=== PATIENT | male | born 1965 | race Two or more races ===

== ENCOUNTER 2025-01-18 11:11 | Inpatient (IN) | payer MEDICAID, OTHER ==
[2025-01-18] VITALS (16 sets, daily range): BP systolic 112–118; BP diastolic 88–99; PULSE 78–100; RESP 15–51; TEMP 36.974–37.2; O2SAT 94–100
[~2025-01-18] VITALS: Ht 165.1 cm; Wt 59.9 kg
[2025-01-18 12:02] LABS: EOSINOPHILS % 0.2 % (0.0-5.0); HEMOGLOBIN. 11.1 g/dL (14.0-18.0); RED BLOOD CELL COUNT 5.30 mill/uL (4.7-6.1)
[2025-01-18 12:03] LABS: BASOPHILS % 0.5 % (0.0-2.0); HEMATOCRIT. 36.2 % (42.0-52.0); LYMPHOCYTES % 15.1 % (20.0-50.0); MONOCYTES % 7.5 % (2.0-8.0); NEUTROPHILS % 76.7 % (40.0-76.0); RED CELL DISTRIBUTION WIDTH 21.3 % (11.6-14.6)
[2025-01-18 12:10] LABS: PLATELET 231 x1000/uL (130-400)
[2025-01-18 12:11] LABS: ADD RBC MORPHOLOGY YES; MEAN PLATELET VOLUME 9.3 fl (7.4-10.4)
[2025-01-18 12:20] LABS: CREATININE 1.1 mg/dL (0.6-1.3); UREA NITROGEN BLOOD 12 mg/dL (9-23)
[2025-01-18 12:27] LABS: PLATELET ESTIMATE NORMAL
[2025-01-18 12:44] LABS: TROPONIN I HIGH SENSITIVITY 11191 ng/L (3.0-53)
[2025-01-18] MEDS: MORPHINE SULFATE 4 MG/ML INJ (FOR IV/IM USE) IV ONE (13:31)
[2025-01-18] MEDS: ENOXAPARIN 80MG/0.8ML SYR SUBCUT ONE (13:44)
[2025-01-18] MEDS ORDERED: ACETAMINOPHEN 325MG TABLET PO PRN (15:00)
[2025-01-18] MEDS ORDERED: GUAIFENESIN 200MG/10ML SUGAR FREE UDC PO PRN (15:00)
[2025-01-18] MEDS ORDERED: IPRATROPIUM/ALBUTEROL 0.5-3(2.5)MG/3ML NEB HHN PRN (15:00)
[2025-01-18] MEDS ORDERED: CLONIDINE 0.1MG TABLET PO PRN (15:00)
[2025-01-18] MEDS ORDERED: ONDANSETRON HCL 4MG/2ML INJ IV PRN (15:00)
[2025-01-18] MEDS ORDERED: DOCUSATE SODIUM 100MG CAPSULE PO PRN (15:00)
[2025-01-18] MEDS: ASPIRIN 81MG EC TABLET PO SCH (15:15)
[2025-01-18] MEDS: IPRATROPIUM/ALBUTEROL 0.5-3(2.5)MG/3ML NEB HHN SCH (15:23)
[2025-01-18 15:24] LABS: BG BASE EXCESS -2.9 mmol/L (-2.0-3.0); BG CARBOXYHEMOGLOBIN 1.2 % (0.5-1.5); BG DEOXYHEMOGLOBIN 2.9 % (0.0-5.0); BG FLOW(L/min) 2.50 L/min; BG FRACTION INSPIRED OXYGEN 30; BG HCO3 ACT 21.0 mmol/L (21.0-28.0); BG METHEMOGLOBIN 0.3 % (0.5-1.5); BG OXYGEN SATURATION 97.1 % (94.0-98.0); BG OXYHEMOGLOBIN 95.6 % (94.0-98.0); BG PCO2 33.7 mmHg (35.0-48.0); BG PH 7.412 (7.350-7.450); BG PO2 96.5 mmHg (83.0-108.0); BG SAMPLE SITE LEFT RADIAL; BG TOTAL HEMOGLOBIN 12.5 g/dL (13.5-17.5); BG VENT MODE NASAL CANNULA
[2025-01-18 15:58] LABS: TROPONIN I HIGH SENSITIVITY 12821 ng/L (3.0-53)
[2025-01-18 16:15] LABS: TRIGLYCERIDE 71 mg/dL (0-150)
[2025-01-18 16:16] LABS: LDL CHOLESTEROL 54 mg/dL (5-100)
[2025-01-18 16:17] LABS: ASPARTATE AMINOTRANSFERASE 35 IU/L (<34); BILIRUBIN DIRECT 0.7 mg/dL (<=3.0); BILIRUBIN TOTAL 4.6 mg/dL (0.1-1.0); PHOSPHORUS 3.5 mg/dL (2.5-4.9); PROTEIN TOTAL 6.5 g/dL (6.0-8.3)
[2025-01-18] MEDS: NITROGLYCERIN 0.4MG TABLET SL SL PRN (16:19)
[2025-01-18] MEDS: FUROSEMIDE 40MG/4ML VIAL IVP SCH (16:29)
[2025-01-18] MEDS: PANTOPRAZOLE SODIUM 40 MG/VIAL IV SCH (16:29)
[2025-01-18 16:51] LABS: CLARITY URINE CLEAR (CLEAR); COLOR URINE DARK YELLOW (YELLOW); GLUCOSE URINE NEGATIVE (NEGATIVE); INR 1.5; KETONES URINE NEGATIVE (NEGATIVE); LEUKOCYTE ESTERASE URINE TRACE (NEGATIVE); NITRITE URINE NEGATIVE (NEGATIVE); OCCULT BLOOD URINE NEGATIVE (NEGATIVE); PH URINE 5.0 (4.5-8.0); PROTEIN URINE 1+ (NEGATIVE); SPECIFIC GRAVITY URINE 1.019 (1.005-1.030); UROBILINOGEN URINE 1.0 E.U./dL (0.2-1.0)
[2025-01-18 17:02] LABS: *AMPHETAMINES SCREEN URINE PRESUMPTIVE POSITIVE (NEGATIVE); *BARBITURATES SCREEN URINE NEGATIVE (NEGATIVE); *BENZODIAZEPINES SCREEN URINE NEGATIVE (NEGATIVE); *COCAINE SCREEN URINE NEGATIVE (NEGATIVE); CANNABINOID URINE SCREEN NEGATIVE (NEGATIVE); ECSTASY MDMA SCREEN URINE CONF.TEST INDICATED (NEGATIVE); METHADONE URINE SCREEN NEGATIVE (NEGATIVE); OPIATES URINE SCREEN PRESUMPTIVE POSITIVE (NEGATIVE); PHENCYCLIDINE URINE SCREEN NEGATIVE (NEGATIVE)
[2025-01-18 17:14] LABS: BACTERIA URINE TRACE; RBC URINE 0-2 /hpf (0-2); SQUAMOUS EPITHELIAL CELL URINE FEW /lpf (RARE/1+)
[2025-01-18] MEDS ORDERED: FUROSEMIDE 40MG/4ML VIAL IVP SCH (17:15)
[2025-01-18] MEDS: PIPERACILLIN/TAZO 3.375G/50ML 50 ML IV SCH (17:51)
[2025-01-18] MEDS ORDERED: DEXTROSE 50% WATER 50ML SYRINGE IV PRN (18:45)
[2025-01-18] MEDS: MAGNESIUM 2 G PREMIX 50 ML IV SCH (19:02)
[2025-01-18] MEDS: INSULIN LISPRO 100 UNITS/ML SUBCUT SCH (21:00)
[2025-01-18] MEDS: BLOOD SUGAR DIAGNOSTIC STRIP TEST SCH (21:44)
[2025-01-18] MEDS: ATORVASTATIN CALCIUM 40MG TABLET PO SCH (21:46)
[2025-01-19] VITALS (93 sets, daily range): BP systolic 101–138; BP diastolic 70–112; PULSE 69–109; RESP 0–51; TEMP 36.9–37.1; O2SAT 84–100
[2025-01-19] MEDS: PIPERACILLIN/TAZO 3.375G/50ML 50 ML IV SCH (02:01)
[2025-01-19 07:27] LABS: CREATININE 0.9 mg/dL (0.6-1.3); UREA NITROGEN BLOOD 9 mg/dL (9-23)
[2025-01-19 07:29] LABS: ASPARTATE AMINOTRANSFERASE 101 IU/L (<34); BILIRUBIN DIRECT 0.7 mg/dL (<=3.0); BILIRUBIN TOTAL 5.9 mg/dL (0.1-1.0); PROTEIN TOTAL 6.1 g/dL (6.0-8.3)
[2025-01-19 07:31] LABS: T4 FREE 1.57 ng/dL (0.89-1.76)
[2025-01-19 07:37] LABS: BASOPHILS % 0.6 % (0.0-2.0); EOSINOPHILS % 0.6 % (0.0-5.0); HEMATOCRIT. 36.3 % (42.0-52.0); HEMOGLOBIN. 11.1 g/dL (14.0-18.0); LYMPHOCYTES % 13.0 % (20.0-50.0); MONOCYTES % 7.6 % (2.0-8.0); NEUTROPHILS % 78.2 % (40.0-76.0); RED BLOOD CELL COUNT 5.35 mill/uL (4.7-6.1); RED CELL DISTRIBUTION WIDTH 20.7 % (11.6-14.6)
[2025-01-19 08:26] LABS: TROPONIN I HIGH SENSITIVITY 78486 ng/L (3.0-53)
[2025-01-19] MEDS ORDERED: ENOXAPARIN 80MG/0.8ML SYR SUBCUT SCH (09:00)
[2025-01-19] MEDS: FERROUS SULFATE 325MG TABLET PO SCH (09:30)
[2025-01-19] MEDS ORDERED: VERAPAMIL HCL 2.5 MG/1 ML 2ML VIAL IV ONE ×2 (11:13→13:26)
[2025-01-19] MEDS ORDERED: LIDOCAINE HCL 1% 20ML VIAL ONE ×2 (11:13→13:26)
[2025-01-19] MEDS ORDERED: HEPARIN 1000 UNITS/ML 10ML ONE ×3 (11:13→14:52)
[2025-01-19] MEDS ORDERED: IODIXANOL 320MG/ML 100 ML BOTTLE IV ONE ×4 (11:13→14:51)
[2025-01-19] MEDS ORDERED: FENTANYL CITRATE/PF 50MCG/ML 2ML VIAL ONE ×2 (11:32→14:02)
[2025-01-19] MEDS ORDERED: MIDAZOLAM HCL 2 MG/2 ML VIAL ONE ×2 (11:32→14:03)
[2025-01-19] MEDS ORDERED: AMIODARONE HCL 50MG/ML 3ML VIAL IV ONE (13:57)
[2025-01-19] MEDS ORDERED: NICARDIPINE 100MCG/ML 10ML VIAL (CATH LAB) IV ONE (14:18)
[2025-01-19] MEDS ORDERED: NITROGLYCERIN 50MCG/ML 10ML VIAL (CATH LAB) IV ONE (14:18)
[2025-01-19] MEDS ORDERED: FUROSEMIDE 100MG/10ML VIAL ONE (14:23)
[2025-01-19] MEDS ORDERED: ASPIRIN 81MG TABLET ONE (15:03)
[2025-01-19] MEDS ORDERED: CLOPIDOGREL 75MG TABLET ONE (15:03)
[2025-01-19] MEDS ORDERED: ATROPINE SULFATE 1MG/10ML SYR IV PRN (15:15)
[2025-01-19] MEDS: ACETAMINOPHEN 325MG TABLET PO PRN (18:26)
[2025-01-20] VITALS (52 sets, daily range): BP systolic 99–134; BP diastolic 74–108; PULSE 83–139; RESP 15–55; TEMP 36.7–37.6; O2SAT 83–100
[2025-01-20 05:32] LABS: HEMATOCRIT. 35.6 % (42.0-52.0); HEMOGLOBIN. 11.0 g/dL (14.0-18.0); MEAN PLATELET VOLUME 9.2 fl (7.4-10.4); PLATELET 198 x1000/uL (130-400); RED BLOOD CELL COUNT 5.24 mill/uL (4.7-6.1); RED CELL DISTRIBUTION WIDTH 21.2 % (11.6-14.6)
[2025-01-20 05:46] LABS: CREATININE 1.0 mg/dL (0.6-1.3)
[2025-01-20 05:47] LABS: UREA NITROGEN BLOOD 11 mg/dL (9-23)
[2025-01-20 05:48] LABS: PHOSPHORUS 2.4 mg/dL (2.5-4.9)
[2025-01-20] MEDS: CLOPIDOGREL 75MG TABLET PO SCH (08:19)
[2025-01-20 10:16] LABS: BAND% 1.0 % (1.0-6.0); LYMPHOCYTES % MANUAL 11.0 % (20.0-50.0); MONOCYTES % MANUAL 6.0 % (2.0-8.0); NEUTROPHILS % MANUAL 82.0 % (45.0-75.0)
[2025-01-20 10:17] LABS: PLATELET ESTIMATE NORMAL
[2025-01-20] MEDS ORDERED: LIP40 PO (11:20)
[2025-01-20] MEDS ORDERED: FERR-63 PO (11:20)
[2025-01-20] MEDS ORDERED: PROT40 PO (11:20)
[2025-01-20] MEDS ORDERED: CLOP-31 PO (11:20)
[2025-01-20] MEDS ORDERED: ASPI-1406 PO (11:20)
[2025-01-20] MEDS: MAGNESIUM 2 G PREMIX 50 ML IV ONE (11:46)
[2025-01-20] MEDS: POTASSIUM CHLORIDE 20MEQ TABLET SR PO SCH (11:46)
[2025-01-20] MEDS ORDERED: IOHEXOL-350 100 ML BOTTLE ONE (12:00)
[2025-01-20] MEDS: FUROSEMIDE 40MG/4ML VIAL IVP SCH (12:49)
[2025-01-20] MEDS: SODIUM PHOSPHATE 15 MMOL in DEXT 5% WATER 245 ML IV ONE (12:50)
[2025-01-20] MEDS: METOPROLOL TARTRATE 25MG TABLET PO SCH (21:00)
[2025-01-21] VITALS (55 sets, daily range): BP systolic 77–134; BP diastolic 52–112; PULSE 87–135; RESP 9–48; TEMP 36.9–37.2; O2SAT 91–100
[2025-01-21 05:46] LABS: CREATININE 0.9 mg/dL (0.6-1.3); UREA NITROGEN BLOOD 9 mg/dL (9-23)
[2025-01-21 05:48] LABS: PHOSPHORUS 3.0 mg/dL (2.5-4.9)
[2025-01-21] MEDS: THIAMINE HCL 100MG TABLET PO SCH (08:51)
[2025-01-21] MEDS: POTASSIUM CHLORIDE 20MEQ TABLET SR PO NR (08:51)
[2025-01-21] MEDS: PIPERACILLIN/TAZO 3.375G/50ML 50 ML IV SCH (13:24)
[2025-01-21] MEDS: FUROSEMIDE 40MG/4ML VIAL IVP SCH (21:00)
[2025-01-22] VITALS (102 sets, daily range): BP systolic 77–127; BP diastolic 59–99; PULSE 80–112; RESP 0–55; TEMP 36.6–37.9; O2SAT 86–100
[2025-01-22 05:56] LABS: BASOPHILS % 0.4 % (0.0-2.0); EOSINOPHILS % 1.0 % (0.0-5.0); HEMATOCRIT. 36.4 % (42.0-52.0); HEMOGLOBIN. 11.5 g/dL (14.0-18.0); LYMPHOCYTES % 10.0 % (20.0-50.0); MONOCYTES % 7.5 % (2.0-8.0); NEUTROPHILS % 81.1 % (40.0-76.0); RED BLOOD CELL COUNT 5.45 mill/uL (4.7-6.1); RED CELL DISTRIBUTION WIDTH 21.0 % (11.6-14.6)
[2025-01-22 06:23] LABS: CREATININE 1.0 mg/dL (0.6-1.3); UREA NITROGEN BLOOD 9 mg/dL (9-23)
[2025-01-22 06:25] LABS: PHOSPHORUS 2.8 mg/dL (2.5-4.9)
[2025-01-22 09:07] LABS: BG BASE EXCESS 3.2 mmol/L (-2.0-3.0); BG CARBOXYHEMOGLOBIN 1.6 % (0.5-1.5); BG DEOXYHEMOGLOBIN 7.8 % (0.0-5.0); BG FLOW(L/min) 2.00 L/min; BG FRACTION INSPIRED OXYGEN 28; BG HCO3 ACT 27.1 mmol/L (21.0-28.0); BG METHEMOGLOBIN 0.0 % (0.5-1.5); BG OXYGEN SATURATION 92.1 % (94.0-98.0); BG OXYHEMOGLOBIN 90.6 % (94.0-98.0); BG PCO2 38.9 mmHg (35.0-48.0); BG PH 7.461 (7.350-7.450); BG PO2 64.4 mmHg (83.0-108.0); BG SAMPLE SITE RIGHT BRACHIAL; BG TOTAL HEMOGLOBIN 13.2 g/dL (13.5-17.5); BG VENT MODE NASAL CANNULA
[2025-01-22 09:28] LABS: PLATELET 177 x1000/uL (130-400)
[2025-01-22] MEDS: MAGNESIUM 2 G PREMIX 50 ML IV SCH (09:42)
[2025-01-22] MEDS: ENOXAPARIN 40MG/0.4ML SYR SUBCUT SCH (09:44)
[2025-01-22] MEDS: SODIUM CHLORIDE 0.9% 250 ML IV ONE (13:06)
[2025-01-23] VITALS (73 sets, daily range): BP systolic 87–127; BP diastolic 70–103; PULSE 87–112; RESP 0–47; TEMP 36.6–37.1; O2SAT 90–100
[2025-01-23 05:47] LABS: BASOPHILS % 0.5 % (0.0-2.0); EOSINOPHILS % 1.4 % (0.0-5.0); HEMATOCRIT. 37.6 % (42.0-52.0); HEMOGLOBIN. 11.7 g/dL (14.0-18.0); LYMPHOCYTES % 11.4 % (20.0-50.0); MEAN PLATELET VOLUME 9.2 fl (7.4-10.4); MONOCYTES % 7.7 % (2.0-8.0); NEUTROPHILS % 79.0 % (40.0-76.0); PLATELET 212 x1000/uL (130-400); RED BLOOD CELL COUNT 5.49 mill/uL (4.7-6.1); RED CELL DISTRIBUTION WIDTH 21.3 % (11.6-14.6)
[2025-01-23 06:12] LABS: CREATININE 0.9 mg/dL (0.6-1.3); UREA NITROGEN BLOOD 8 mg/dL (9-23)
[2025-01-23 06:14] LABS: ASPARTATE AMINOTRANSFERASE 24 IU/L (<34); BILIRUBIN DIRECT 1.3 mg/dL (<=3.0); PHOSPHORUS 3.6 mg/dL (2.5-4.9)
[2025-01-23 06:15] LABS: BILIRUBIN TOTAL 3.1 mg/dL (0.1-1.0); PROTEIN TOTAL 6.5 g/dL (6.0-8.3)
[2025-01-23] MEDS ORDERED: LIDOCAINE HCL 1% 20ML VIAL ONE (08:07)
[2025-01-23 09:01] LABS: BG BASE EXCESS 3.3 mmol/L (-2.0-3.0); BG CARBOXYHEMOGLOBIN 1.4 % (0.5-1.5); BG DEOXYHEMOGLOBIN 6.7 % (0.0-5.0); BG FRACTION INSPIRED OXYGEN 21; BG HCO3 ACT 25.6 mmol/L (21.0-28.0); BG METHEMOGLOBIN 0.0 % (0.5-1.5); BG OXYGEN SATURATION 93.2 % (94.0-98.0); BG OXYHEMOGLOBIN 91.9 % (94.0-98.0); BG PCO2 32.1 mmHg (35.0-48.0); BG PH 7.520 (7.350-7.450); BG PO2 64.6 mmHg (83.0-108.0); BG SAMPLE SITE LEFT BRACHIAL; BG TOTAL HEMOGLOBIN 13.0 g/dL (13.5-17.5); BG VENT MODE ROOM AIR
[2025-01-23] MEDS ORDERED: MIDAZOLAM HCL 2 MG/2 ML VIAL ONE (12:19)
[2025-01-23] MEDS ORDERED: FENTANYL CITRATE/PF 50MCG/ML 2ML VIAL ONE (12:19)
[2025-01-23] MEDS ORDERED: IODIXANOL 320MG/ML 100 ML BOTTLE IV ONE (12:44)
[2025-01-23] MEDS: FUROSEMIDE 100MG/10ML VIAL IVP NR (13:53)
[2025-01-24] VITALS (73 sets, daily range): BP systolic 88–141; BP diastolic 60–111; PULSE 84–155; RESP 0–46; TEMP 36.6–37.2; O2SAT 83–99
[2025-01-24 06:56] LABS: CREATININE 1.1 mg/dL (0.6-1.3); UREA NITROGEN BLOOD 10 mg/dL (9-23)
[2025-01-24 06:58] LABS: PHOSPHORUS 3.7 mg/dL (2.5-4.9)
[2025-01-24 07:24] LABS: BASOPHILS % 0.8 % (0.0-2.0); EOSINOPHILS % 2.4 % (0.0-5.0); HEMATOCRIT. 40.5 % (42.0-52.0); HEMOGLOBIN. 12.6 g/dL (14.0-18.0); LYMPHOCYTES % 14.1 % (20.0-50.0); MEAN PLATELET VOLUME 9.4 fl (7.4-10.4); MONOCYTES % 9.2 % (2.0-8.0); NEUTROPHILS % 73.5 % (40.0-76.0); PLATELET 224 x1000/uL (130-400); RED BLOOD CELL COUNT 5.96 mill/uL (4.7-6.1); RED CELL DISTRIBUTION WIDTH 21.0 % (11.6-14.6)
[2025-01-24] MEDS: KCL 20MEQ/100ML PREMIX 100 ML IV ONE (10:06)
[2025-01-24] MEDS: METOPROLOL TARTRATE 5MG/5ML VIAL IV SCH (10:06)
[2025-01-24] MEDS: MAGNESIUM 1 G PREMIX 100 ML IV ONE (10:06)
[2025-01-24] MEDS: FUROSEMIDE 40MG/4ML VIAL IVP SCH (13:46)
[2025-01-24] MEDS: METOPROLOL TARTRATE 25MG TABLET PO SCH (21:20)
[2025-01-24] MEDS: SILDENAFIL CITRATE 20MG TABLET PO SCH (21:21)
[2025-01-25] VITALS (56 sets, daily range): BP systolic 69–113; BP diastolic 56–89; PULSE 76–103; RESP 9–35; TEMP 36.6–36.8; O2SAT 89–100
[2025-01-25 06:43] LABS: BASOPHILS % 0.7 % (0.0-2.0); EOSINOPHILS % 1.7 % (0.0-5.0); HEMATOCRIT. 42.2 % (42.0-52.0); HEMOGLOBIN. 13.2 g/dL (14.0-18.0); LYMPHOCYTES % 17.6 % (20.0-50.0); MONOCYTES % 8.6 % (2.0-8.0); NEUTROPHILS % 71.4 % (40.0-76.0); RED BLOOD CELL COUNT 6.29 mill/uL (4.7-6.1); RED CELL DISTRIBUTION WIDTH 21.4 % (11.6-14.6)
[2025-01-25 07:02] LABS: CREATININE 0.9 mg/dL (0.6-1.3); UREA NITROGEN BLOOD 12 mg/dL (9-23)
[2025-01-25 07:04] LABS: PHOSPHORUS 3.8 mg/dL (2.5-4.9)
[2025-01-25] MEDS: EMPAGLIFLOZIN 10MG TABLET PO SCH (08:15)
[2025-01-25] MEDS ORDERED: METO25TA6 PO (09:57)
[2025-01-25] MEDS ORDERED: EMPA10TA PO (09:57)
[2025-01-25] MEDS ORDERED: REV20 PO (09:57)
[2025-01-25] MEDS ORDERED: THIA100T72 PO (09:57)
[2025-01-25 12:17] LABS: PLATELET 227 x1000/uL (130-400)
[2025-01-25] MEDS ORDERED: FURO40TA5 MT (13:23)
== END 2025-01-25 19:00 | DRG 175 ==
LOC: ER 11:11 → CVICU 13:23 → EDBEDREQ 13:40 → EDBEDREQSVC 13:40 → EDBEDREQTM 13:40 → ENRESERV 19:52
PROVIDERS: ADMIT Internal Medicine; ATTEND Internal Medicine
PROC: 4A023N7 Measurement of Cardiac Sampling and Pressure, Left Heart, Percutaneous Approach (ICD-10-PCS; principal; 2025-01-20)
PROC: 027034Z Dilation of Coronary Artery, One Artery with Drug-eluting Intraluminal Device, Percutaneous Approach (ICD-10-PCS; 2025-01-20)
PROC: B2111ZZ Fluoroscopy of Multiple Coronary Arteries using Low Osmolar Contrast (ICD-10-PCS; 2025-01-20)
PROC: B2151ZZ Fluoroscopy of Left Heart using Low Osmolar Contrast (ICD-10-PCS; 2025-01-20)
PROC: 4A023N6 Measurement of Cardiac Sampling and Pressure, Right Heart, Percutaneous Approach (ICD-10-PCS; 2025-01-23)
PROC: B2141ZZ Fluoroscopy of Right Heart using Low Osmolar Contrast (ICD-10-PCS; 2025-01-23)
DX: I11.0 Hypertensive heart disease with heart failure (principal); J96.01 Acute respiratory failure with hypoxia; E87.20 Acidosis, unspecified; I27.20 Pulmonary hypertension, unspecified; I21.A1 Myocardial infarction type 2; J91.8 Pleural effusion in other conditions classified elsewhere; I50.23 Acute on chronic systolic (congestive) heart failure; J44.0 Chronic obstructive pulmonary disease with (acute) lower respiratory infection; D50.9 Iron deficiency anemia, unspecified; F15.10 Other stimulant abuse, uncomplicated; F16.10 Hallucinogen abuse, uncomplicated; I07.1 Rheumatic tricuspid insufficiency; I37.1 Nonrheumatic pulmonary valve insufficiency; E11.9 Type 2 diabetes mellitus without complications; E83.39 Other disorders of phosphorus metabolism; E83.42 Hypomagnesemia; I25.10 Atherosclerotic heart disease of native coronary artery without angina pectoris; E87.6 Hypokalemia; I44.4 Left anterior fascicular block; I42.9 Cardiomyopathy, unspecified; Z79.82 Long term (current) use of aspirin; I25.2 Old myocardial infarction; Z79.899 Other long term (current) drug therapy; Z86.73 Personal history of transient ischemic attack (TIA), and cerebral infarction without residual deficits; Z79.02 Long term (current) use of antithrombotics/antiplatelets
CPT/HCPCS: 36415; 36600; 71045; 71275; 76700; 80048; 80061; 80076; 80305; 81003; 82375; 82728; 82805; 82962; 83036; 83540; 83550; 83605; 83735; 83880; 83930; 84100; 84145; 84439; 84443; 84484; 85025; 85347; 85379; 86850; 86900; 92928; 93005; 93306; 93451; 93458; 93970; 94070; 94640; 94664; 97116; 97162; 97166; 97530; 97535; 98960; 99291; A4606; C1725; C1769; C1874; C1887; C1893; J0282; J1644; J1650; J1815; J1938; J2003; J2250; J2270; J2470; J2543; J3010; J3475; J3480; J3490; J7060; Q9967

== ENCOUNTER 2025-02-27 21:14 | Inpatient (IN) | payer OTHER ==
[~2025-02-27] VITALS: Ht 177.8 cm; Wt 76.7 kg
[~2025-02-27 21:14] MED LIST: ASPI-1406 PO; CLOP-31 PO; EMPA10TA PO; FERR-63 PO; FURO40TA5 MT; LIP40 PO; METO25TA6 PO; PROT40 PO; REV20 PO; THIA100T72 PO
[2025-02-27 21:29] VITALS: O2SAT 97
[2025-02-27] MEDS ORDERED: BENA20TA77 MT (21:35)
[2025-02-27] MEDS ORDERED: COR3 MT (21:35)
[2025-02-27] MEDS ORDERED: PROM6.2527 MT (21:35)
[2025-02-27] MEDS ORDERED: GABA100C MT (21:35)
[2025-02-27] MEDS ORDERED: APIX2.5T MT (21:35)
[2025-02-27] MEDS ORDERED: FAMO-135 MT (21:35)
[2025-02-27] MEDS ORDERED: ALBU2.5V13 NEB (21:35)
[2025-02-27] MEDS: MORPHINE SULFATE 4 MG/ML INJ (FOR IV/IM USE) IV ONE (23:11)
[2025-02-27] MEDS: ONDANSETRON HCL 4MG/2ML INJ IV ONE (23:11)
[2025-02-27 23:29] LABS: BASOPHILS % 0.9 % (0.0-2.0); EOSINOPHILS % 0.5 % (0.0-5.0); HEMATOCRIT. 37.1 % (42.0-52.0); HEMOGLOBIN. 11.4 g/dL (14.0-18.0); LYMPHOCYTES % 11.0 % (20.0-50.0); MEAN PLATELET VOLUME 10.2 fl (7.4-10.4); MONOCYTES % 4.8 % (2.0-8.0); NEUTROPHILS % 82.8 % (40.0-76.0); RED BLOOD CELL COUNT 5.23 mill/uL (4.7-6.1); RED CELL DISTRIBUTION WIDTH 22.8 % (11.6-14.6)
[2025-02-27 23:30] LABS: ADD RBC MORPHOLOGY YES
[2025-02-27 23:40] LABS: INR 1.2
[2025-02-27 23:44] LABS: CLARITY URINE CLEAR (CLEAR); COLOR URINE DARK YELLOW (YELLOW); GLUCOSE URINE NEGATIVE (NEGATIVE); KETONES URINE NEGATIVE (NEGATIVE); LEUKOCYTE ESTERASE URINE NEGATIVE (NEGATIVE); NITRITE URINE NEGATIVE (NEGATIVE); OCCULT BLOOD URINE TRACE (NEGATIVE); PH URINE 5.0 (4.5-8.0); PROTEIN URINE 3+ (NEGATIVE); SPECIFIC GRAVITY URINE 1.026 (1.005-1.030); UROBILINOGEN URINE 1.0 E.U./dL (0.2-1.0)
[2025-02-27 23:56] LABS: *AMPHETAMINES SCREEN URINE NEGATIVE (NEGATIVE); *BARBITURATES SCREEN URINE NEGATIVE (NEGATIVE); *BENZODIAZEPINES SCREEN URINE NEGATIVE (NEGATIVE); *COCAINE SCREEN URINE NEGATIVE (NEGATIVE); CANNABINOID URINE SCREEN NEGATIVE (NEGATIVE); ECSTASY MDMA SCREEN URINE NEGATIVE (NEGATIVE); METHADONE URINE SCREEN NEGATIVE (NEGATIVE); OPIATES URINE SCREEN NEGATIVE (NEGATIVE); PHENCYCLIDINE URINE SCREEN NEGATIVE (NEGATIVE)
[2025-02-28] MEDS: FUROSEMIDE 40MG/4ML VIAL IVP NR (00:10)
[2025-02-28 00:51] LABS: BACTERIA URINE TRACE; SQUAMOUS EPITHELIAL CELL URINE NONE SEEN /lpf (RARE/1+); WBC URINE NONE SEEN /hpf (0-2)
[2025-02-28 00:52] LABS: CALCIUM OXALATE CRYSTALS URINE 1+ /lpf; COARSE GRANULAR CASTS URINE 0-5 /lpf; FINE GRANULAR CASTS URINE 0-5 /lpf; HYALINE CASTS URINE 0-5 /lpf
[2025-02-28 01:01] LABS: CREATININE 0.9 mg/dL (0.6-1.3)
[2025-02-28 01:02] LABS: UREA NITROGEN BLOOD 9 mg/dL (9-23)
[2025-02-28 01:03] LABS: ASPARTATE AMINOTRANSFERASE 17 IU/L (<34)
[2025-02-28 01:04] LABS: BILIRUBIN DIRECT 1.0 mg/dL (<=3.0); BILIRUBIN TOTAL 4.0 mg/dL (0.1-1.0); PROTEIN TOTAL 7.1 g/dL (6.0-8.3)
[2025-02-28 01:07] LABS: TROPONIN I HIGH SENSITIVITY 354 ng/L (3.0-53)
[2025-02-28] MEDS: ASPIRIN 325MG EC TABLET PO NR (04:25)
[2025-02-28] MEDS: ENOXAPARIN 120MG/0.8ML SYR SUBCUT NR (04:25)
[2025-02-28 04:31] LABS: PLATELET ESTIMATE NORMAL
[2025-02-28 04:36] LABS: PLATELET 231 x1000/uL (130-400)
[2025-02-28 05:00] VITALS: BP 99/68; PULSE 107; RESP 32; TEMP 35.584
[2025-02-28] MEDS ORDERED: CLONIDINE 0.1MG TABLET PO PRN (06:15)
[2025-02-28] MEDS ORDERED: MORPHINE SULFATE 4 MG/ML INJ (FOR IV/IM USE) IV PRN (06:15)
[2025-02-28] MEDS ORDERED: ONDANSETRON HCL 4MG/2ML INJ IV PRN (06:15)
[2025-02-28] MEDS ORDERED: HYDROCODONE/ACETAMINOPHEN 5/325MG TABLET PO PRN (06:15)
[2025-02-28] MEDS ORDERED: ZOLPIDEM TARTRATE 5MG TABLET PO PRN (06:15)
[2025-02-28] MEDS ORDERED: MAGNESIUM/ALUMINUM HYDROXIDE/SIMETHICONE 30ML UDC PO PRN (06:15)
[2025-02-28] MEDS ORDERED: ACETAMINOPHEN 325MG TABLET PO PRN (06:15)
[2025-02-28 08:00] VITALS: BP 127/89; PULSE 96; RESP 18; TEMP 36.5; O2SAT 100
[2025-02-28] MEDS: FUROSEMIDE 40MG/4ML VIAL IVP SCH (09:28)
[2025-02-28] MEDS: PANTOPRAZOLE SODIUM 40 MG/VIAL IV SCH (09:28)
[2025-02-28 12:00] VITALS: BP 119/91; PULSE 102; RESP 20; TEMP 36.3; O2SAT 99
[2025-02-28 12:20] LABS: CLARITY URINE CLEAR (CLEAR); COLOR URINE YELLOW (YELLOW); SPECIFIC GRAVITY URINE 1.006 (1.005-1.030)
[2025-02-28 12:21] LABS: GLUCOSE URINE NEGATIVE (NEGATIVE); KETONES URINE NEGATIVE (NEGATIVE); LEUKOCYTE ESTERASE URINE TRACE (NEGATIVE); NITRITE URINE NEGATIVE (NEGATIVE); OCCULT BLOOD URINE NEGATIVE (NEGATIVE); PH URINE 5.0 (4.5-8.0); PROTEIN URINE NEGATIVE (NEGATIVE); UROBILINOGEN URINE 0.2 E.U./dL (0.2-1.0)
[2025-02-28 12:30] LABS: HYALINE CASTS URINE 0-5 /lpf
[2025-02-28 12:31] LABS: RBC URINE NONE SEEN /hpf (0-2); SQUAMOUS EPITHELIAL CELL URINE FEW /lpf (RARE/1+); WBC URINE 0-2 /hpf (0-2)
[2025-02-28 12:32] LABS: BACTERIA URINE NONE SEEN
[2025-02-28] MEDS: GABAPENTIN 100MG CAPSULE PO SCH (14:19)
[2025-02-28] MEDS: SILDENAFIL CITRATE 20MG TABLET PO SCH (14:19)
[2025-02-28 15:11] LABS: *AMPHETAMINES SCREEN URINE NEGATIVE (NEGATIVE); *BARBITURATES SCREEN URINE NEGATIVE (NEGATIVE); *BENZODIAZEPINES SCREEN URINE NEGATIVE (NEGATIVE); *COCAINE SCREEN URINE NEGATIVE (NEGATIVE); CANNABINOID URINE SCREEN NEGATIVE (NEGATIVE); ECSTASY MDMA SCREEN URINE NEGATIVE (NEGATIVE); METHADONE URINE SCREEN NEGATIVE (NEGATIVE); OPIATES URINE SCREEN NEGATIVE (NEGATIVE); PHENCYCLIDINE URINE SCREEN NEGATIVE (NEGATIVE)
[2025-02-28 16:00] VITALS: BP 127/97; PULSE 81; RESP 17; TEMP 36.4; O2SAT 100
[2025-02-28 19:13] LABS: TROPONIN I HIGH SENSITIVITY 316 ng/L (3.0-53)
[2025-02-28 20:00] VITALS: BP 100/73; PULSE 101; RESP 21; TEMP 35.7; O2SAT 96
[2025-02-28] MEDS: METOPROLOL TARTRATE 25MG TABLET PO SCH (21:00)
[2025-02-28] MEDS: CARVEDILOL 3.125 MG TABLET PO SCH (21:41)
[2025-02-28] MEDS: ATORVASTATIN CALCIUM 40MG TABLET PO SCH (21:41)
[2025-02-28] MEDS: APIXABAN 5 MG TABLET PO SCH (21:41)
[2025-03-01] VITALS: BP 120/84; PULSE 94; RESP 20; TEMP 36.4; O2SAT 98
[2025-03-01 01:06] LABS: TROPONIN I HIGH SENSITIVITY 309 ng/L (3.0-53)
[2025-03-01 04:00] VITALS: BP 96/71; PULSE 78; RESP 22; TEMP 36.3; O2SAT 97
[2025-03-01 06:45] LABS: BASOPHILS % 0.6 % (0.0-2.0); EOSINOPHILS % 2.4 % (0.0-5.0); HEMATOCRIT. 34.3 % (42.0-52.0); HEMOGLOBIN. 10.5 g/dL (14.0-18.0); LYMPHOCYTES % 14.2 % (20.0-50.0); MEAN PLATELET VOLUME 8.9 fl (7.4-10.4); MONOCYTES % 6.2 % (2.0-8.0); NEUTROPHILS % 76.6 % (40.0-76.0); PLATELET 253 x1000/uL (130-400); RED BLOOD CELL COUNT 4.87 mill/uL (4.7-6.1); RED CELL DISTRIBUTION WIDTH 22.5 % (11.6-14.6)
[2025-03-01 06:54] LABS: UREA NITROGEN BLOOD 9 mg/dL (9-23)
[2025-03-01 07:37] LABS: CREATININE 0.5 mg/dL (0.6-1.3)
[2025-03-01 08:00] VITALS: BP 100/68; PULSE 100; RESP 18; TEMP 36.5; O2SAT 95
[2025-03-01] MEDS: THIAMINE HCL 100MG TABLET PO SCH (08:41)
[2025-03-01] MEDS: CLOPIDOGREL 75MG TABLET PO SCH (08:41)
[2025-03-01] MEDS: ASPIRIN 81MG EC TABLET PO SCH (08:41)
[2025-03-01] MEDS: EMPAGLIFLOZIN 10MG TABLET PO SCH (08:42)
[2025-03-01] MEDS ORDERED: ENOXAPARIN 40MG/0.4ML SYR SUBCUT SCH (09:00)
[2025-03-01] MEDS ORDERED: NALOXONE HCL 0.4MG/ML VIAL IV PRN (11:30)
[2025-03-01 12:00] VITALS: BP 112/80; PULSE 81; RESP 18; TEMP 36.7; O2SAT 96
[2025-03-01 16:00] VITALS: BP 123/82; PULSE 98; RESP 18; TEMP 36.6; O2SAT 98
[2025-03-01 20:00] VITALS: BP 138/66; PULSE 98; RESP 20; TEMP 36.4; O2SAT 98
[2025-03-02] VITALS: BP 109/66; PULSE 94; RESP 18; TEMP 36.3; O2SAT 98
[2025-03-02 04:00] VITALS: BP 124/64; PULSE 92; RESP 20; TEMP 36.8; O2SAT 96
[2025-03-02 08:00] VITALS: BP 106/76; PULSE 74; RESP 17; TEMP 36.5; O2SAT 98
[2025-03-02 08:43] LABS: CREATININE 1.0 mg/dL (0.6-1.3)
[2025-03-02 08:45] LABS: UREA NITROGEN BLOOD 12 mg/dL (9-23)
[2025-03-02 09:02] LABS: BASOPHILS % 0.8 % (0.0-2.0); EOSINOPHILS % 5.0 % (0.0-5.0); HEMATOCRIT. 33.8 % (42.0-52.0); HEMOGLOBIN. 10.4 g/dL (14.0-18.0); LYMPHOCYTES % 15.5 % (20.0-50.0); MONOCYTES % 7.8 % (2.0-8.0); NEUTROPHILS % 70.9 % (40.0-76.0); RED BLOOD CELL COUNT 4.78 mill/uL (4.7-6.1); RED CELL DISTRIBUTION WIDTH 22.7 % (11.6-14.6)
[2025-03-02] MEDS: FUROSEMIDE 20MG TABLET PO SCH (09:56)
[2025-03-02] MEDS: EMPAGLIFLOZIN 10MG TABLET PO SCH (09:56)
[2025-03-02 12:00] VITALS: BP 103/83; PULSE 84; RESP 18; TEMP 36.4; O2SAT 99
[2025-03-02 16:00] VITALS: BP_SYST 102; BP_SYST 107; BP_DIAS 70; PULSE 80; PULSE 97; RESP 16; RESP 19; TEMP 36.2; TEMP 36.4; O2SAT 98; O2SAT 99
[2025-03-02 16:47] VITALS: BP 106/72; PULSE 80; TEMP 98.1
== END 2025-03-02 20:20 | disposition home or self-care (01) | DRG 254 ==
LOC: ER 21:14 → EDBEDREQDT 02-28 01:05 → EDBEDREQTM 02-28 01:05 → EDBEDREQ 02-28 01:05 → ENRESERV 02-28 04:42 → 6WST 02-28 05:01
PROVIDERS: ADMIT Internal Medicine; ATTEND Internal Medicine
DX: K40.90 Unilateral inguinal hernia, without obstruction or gangrene, not specified as recurrent (principal); I50.21 Acute systolic (congestive) heart failure; E87.20 Acidosis, unspecified; I24.0 Acute coronary thrombosis not resulting in myocardial infarction; I27.20 Pulmonary hypertension, unspecified; I42.9 Cardiomyopathy, unspecified; D72.829 Elevated white blood cell count, unspecified; E11.9 Type 2 diabetes mellitus without complications; I11.0 Hypertensive heart disease with heart failure; J44.89 Other specified chronic obstructive pulmonary disease; E78.5 Hyperlipidemia, unspecified; I95.9 Hypotension, unspecified; Z86.73 Personal history of transient ischemic attack (TIA), and cerebral infarction without residual deficits; I25.2 Old myocardial infarction; Z91.199 Patient's noncompliance with other medical treatment and regimen due to unspecified reason; Z87.891 Personal history of nicotine dependence; Z99.81 Dependence on supplemental oxygen
CPT/HCPCS: 36415; 71045; 74176; 80048; 80076; 80305; 80320; 81003; 83605; 83880; 84145; 84443; 84484; 85025; 87077; 93005; 93306; 93970; 96372; 96374; 96375; 97162; 99285; A4615; J1650; J1938; J2270; J2405; J2470; G0480

== ENCOUNTER 2025-03-07 17:03 | Inpatient (IN) | payer OTHER ==
[~2025-03-07] VITALS: Ht 172.7 cm; Wt 85.7 kg
[~2025-03-07 17:03] MED LIST changes: +ALBU2.5V13 NEB; +APIX2.5T MT; +BENA20TA77 MT; +COR3 MT; +FAMO-135 MT; +GABA100C MT; -METO25TA6 PO; -PROT40 PO
[2025-03-07 17:58] LABS: ADD RBC MORPHOLOGY YES; BASOPHILS % 0.7 % (0.0-2.0); EOSINOPHILS % 2.4 % (0.0-5.0); HEMATOCRIT. 38.3 % (42.0-52.0); HEMOGLOBIN. 11.5 g/dL (14.0-18.0); LYMPHOCYTES % 16.3 % (20.0-50.0); MEAN PLATELET VOLUME 9.1 fl (7.4-10.4); MONOCYTES % 5.9 % (2.0-8.0); NEUTROPHILS % 74.7 % (40.0-76.0); PLATELET 250 x1000/uL (130-400); RED BLOOD CELL COUNT 5.36 mill/uL (4.7-6.1); RED CELL DISTRIBUTION WIDTH 22.3 % (11.6-14.6)
[2025-03-07] MEDS: ONDANSETRON HCL 4MG/2ML INJ IV ONE (18:09)
[2025-03-07 18:12] LABS: CREATININE 1.1 mg/dL (0.6-1.3); UREA NITROGEN BLOOD 9 mg/dL (9-23)
[2025-03-07 18:14] LABS: ASPARTATE AMINOTRANSFERASE 15 IU/L (<34); BILIRUBIN DIRECT 0.9 mg/dL (<=3.0); BILIRUBIN TOTAL 3.7 mg/dL (0.1-1.0); PROTEIN TOTAL 6.8 g/dL (6.0-8.3)
[2025-03-07 18:16] LABS: PLATELET ESTIMATE NORMAL
[2025-03-07 18:20] LABS: TROPONIN I HIGH SENSITIVITY 439 ng/L (3.0-53)
[2025-03-07] MEDS: MORPHINE SULFATE 4 MG/ML INJ (FOR IV/IM USE) IV ONE (18:44)
[2025-03-07] MEDS ORDERED: DOCUSATE SODIUM 100MG CAPSULE PO PRN (21:15)
[2025-03-07] MEDS ORDERED: ONDANSETRON HCL 4MG/2ML INJ IV PRN (21:15)
[2025-03-07] MEDS ORDERED: ACETAMINOPHEN 325MG TABLET PO PRN (21:15)
[2025-03-07] MEDS ORDERED: GUAIFENESIN 200MG/10ML SUGAR FREE UDC PO PRN (21:15)
[2025-03-07] MEDS ORDERED: IPRATROPIUM/ALBUTEROL 0.5-3(2.5)MG/3ML NEB HHN PRN (21:15)
[2025-03-07 21:53] LABS: TROPONIN I HIGH SENSITIVITY 426 ng/L (3.0-53)
[2025-03-07] MEDS ORDERED: DEXTROSE 50% WATER 50ML SYRINGE IV PRN (22:45)
[2025-03-07] MEDS: KETOROLAC 30MG/ML VIAL IV PRN (22:46)
[2025-03-07] MEDS ORDERED: IOHEXOL-300 100 ML BOTTLE ONE (23:31)
[2025-03-07] MEDS: PANTOPRAZOLE SODIUM 40 MG/VIAL IV SCH (23:49)
[2025-03-07] MEDS: FUROSEMIDE 40MG TABLET PO SCH (23:50)
[2025-03-07] MEDS: CARVEDILOL 3.125 MG TABLET PO SCH (23:50)
[2025-03-07] MEDS: THIAMINE HCL 100MG TABLET PO SCH (23:50)
[2025-03-07] MEDS: CLOPIDOGREL 75MG TABLET PO SCH (23:50)
[2025-03-07] MEDS: EMPAGLIFLOZIN 10MG TABLET PO SCH (23:50)
[2025-03-07] MEDS: ASPIRIN 81MG EC TABLET PO SCH (23:51)
[2025-03-07] MEDS: FERROUS SULFATE 325MG TABLET PO SCH (23:51)
[2025-03-08] VITALS (13 sets, daily range): BP systolic 102–146; BP diastolic 62–102; PULSE 68–101; RESP 18–23; TEMP 35.8–36.5; O2SAT 95–99
[2025-03-08 01:13] LABS: CREATINE KINASE MB FRACTION 2.6 ng/mL (0.5-3.6)
[2025-03-08 01:14] LABS: TRIGLYCERIDE 81.0 mg/dL (0-150)
[2025-03-08 01:15] LABS: LDL CHOLESTEROL 85.0 mg/dL (5-100)
[2025-03-08 01:21] LABS: TROPONIN I HIGH SENSITIVITY 474 ng/L (3.0-53)
[2025-03-08] MEDS: IPRATROPIUM/ALBUTEROL 0.5-3(2.5)MG/3ML NEB HHN SCH (01:42)
[2025-03-08 03:33] LABS: HEPATITIS A AB IGM NEGATIVE (Negative); HEPATITIS B CORE AB IGM NEGATIVE (Negative)
[2025-03-08 03:34] LABS: HEPATITIS C AB NON REACTIVE (Neg) (Negative)
[2025-03-08] MEDS: DEXT 5%/0.45% NACL 1000ML 1,000 ML IV SCH (05:47)
[2025-03-08 06:30] LABS: BASOPHILS % 0.8 % (0.0-2.0); EOSINOPHILS % 1.6 % (0.0-5.0); HEMATOCRIT. 35.7 % (42.0-52.0); HEMOGLOBIN. 10.9 g/dL (14.0-18.0); LYMPHOCYTES % 18.5 % (20.0-50.0); MEAN PLATELET VOLUME 9.0 fl (7.4-10.4); MONOCYTES % 7.7 % (2.0-8.0); NEUTROPHILS % 71.4 % (40.0-76.0); PLATELET 210 x1000/uL (130-400); RED BLOOD CELL COUNT 5.05 mill/uL (4.7-6.1); RED CELL DISTRIBUTION WIDTH 22.0 % (11.6-14.6)
[2025-03-08 06:36] LABS: ADD RBC MORPHOLOGY NO
[2025-03-08 06:49] LABS: CREATININE 1.1 mg/dL (0.6-1.3); UREA NITROGEN BLOOD 12 mg/dL (9-23)
[2025-03-08 06:50] LABS: ASPARTATE AMINOTRANSFERASE 16 IU/L (<34)
[2025-03-08 06:51] LABS: BILIRUBIN DIRECT 1.0 mg/dL (<=3.0); BILIRUBIN TOTAL 3.4 mg/dL (0.1-1.0); PROTEIN TOTAL 6.5 g/dL (6.0-8.3)
[2025-03-08 06:53] LABS: T4 FREE 1.48 ng/dL (0.89-1.76)
[2025-03-08] MEDS: BLOOD SUGAR DIAGNOSTIC STRIP TEST SCH (07:28)
[2025-03-08] MEDS: PIPERACILLIN/TAZO 3.375G/50ML 50 ML IV SCH (07:32)
[2025-03-08] MEDS: ACETAMINOPHEN 325MG TABLET PO PRN (08:58)
[2025-03-08] MEDS ORDERED: ENOXAPARIN 40MG/0.4ML SYR SUBCUT SCH (09:00)
[2025-03-08] MEDS: ATORVASTATIN CALCIUM 40MG TABLET PO SCH (21:20)
[2025-03-09] VITALS (11 sets, daily range): BP systolic 119–132; BP diastolic 86–94; PULSE 66–102; RESP 15–30; TEMP 36.1–36.6; O2SAT 88–100
[2025-03-10] VITALS (13 sets, daily range): BP systolic 110–145; BP diastolic 60–103; PULSE 72–107; RESP 15–22; TEMP 36.2–36.7; O2SAT 96–100
[2025-03-10 06:07] LABS: BASOPHILS % 0.8 % (0.0-2.0); EOSINOPHILS % 6.8 % (0.0-5.0); HEMATOCRIT. 33.0 % (42.0-52.0); HEMOGLOBIN. 10.4 g/dL (14.0-18.0); LYMPHOCYTES % 17.0 % (20.0-50.0); MEAN PLATELET VOLUME 8.8 fl (7.4-10.4); MONOCYTES % 6.6 % (2.0-8.0); NEUTROPHILS % 68.8 % (40.0-76.0); PLATELET 195 x1000/uL (130-400); RED BLOOD CELL COUNT 4.76 mill/uL (4.7-6.1); RED CELL DISTRIBUTION WIDTH 21.8 % (11.6-14.6)
[2025-03-10 06:16] LABS: CREATININE 1.3 mg/dL (0.6-1.3); UREA NITROGEN BLOOD 13.0 mg/dL (9-23)
[2025-03-11] MEDS ORDERED: FAMOTIDINE 20MG/2ML VIAL IV SCH (09:00)
== END 2025-03-10 22:17 | disposition home or self-care (01) | DRG 247 ==
LOC: ER 17:03 → 6WST 20:10 → EDBEDREQ 20:25 → ENRESERV 21:20
PROVIDERS: ADMIT Internal Medicine; ATTEND Internal Medicine
DX: K56.609 Unspecified intestinal obstruction, unspecified as to partial versus complete obstruction (principal); I21.4 Non-ST elevation (NSTEMI) myocardial infarction; E87.20 Acidosis, unspecified; K40.30 Unilateral inguinal hernia, with obstruction, without gangrene, not specified as recurrent; I69.354 Hemiplegia and hemiparesis following cerebral infarction affecting left non-dominant side; Z79.02 Long term (current) use of antithrombotics/antiplatelets; I11.0 Hypertensive heart disease with heart failure; D50.9 Iron deficiency anemia, unspecified; E11.9 Type 2 diabetes mellitus without complications; F12.10 Cannabis abuse, uncomplicated; J44.89 Other specified chronic obstructive pulmonary disease; K52.9 Noninfective gastroenteritis and colitis, unspecified; F14.10 Cocaine abuse, uncomplicated; I50.9 Heart failure, unspecified; I25.10 Atherosclerotic heart disease of native coronary artery without angina pectoris; Z79.82 Long term (current) use of aspirin; Z79.84 Long term (current) use of oral hypoglycemic drugs; Z79.899 Other long term (current) drug therapy; Z87.891 Personal history of nicotine dependence; Z20.822 Contact with and (suspected) exposure to COVID-19
CPT/HCPCS: 36415; 71045; 74177; 80048; 80061; 80076; 82550; 82553; 82962; 83605; 83880; 84145; 84439; 84443; 84481; 84484; 85025; 86705; 86709; 87340; 93005; 94070; 94640; 94664; 96374; 96375; 99285; J1885; J2270; J2405; J2470; J2543; Q9967

== ENCOUNTER 2025-03-27 18:00 | Inpatient (IN) | payer OTHER ==
[~2025-03-27] VITALS: Ht 175.3 cm; Wt 81.6 kg
[~2025-03-27 18:00] MED LIST changes: -CLOP-31 PO
[2025-03-27] MEDS ORDERED: ALBUTEROL (0.083%) 2.5MG/3ML NEB HHN SCH (18:15)
[2025-03-27] MEDS: METHYLPREDNISOLONE SOD SUCC 125MG/2ML (ACT-O-VIAL) IV ONE (19:01)
[2025-03-27] MEDS: CEFTRIAXONE 1GM/50ML 50 ML IV ONE (19:01)
[2025-03-27 19:03] LABS: BG DEOXYHEMOGLOBIN 2.5 % (0.0-5.0)
[2025-03-27] MEDS ORDERED: VANCOMYCIN 1000MG/250ML 250 ML IV SCH (19:15)
[2025-03-27] MEDS: VANCOMYCIN 1G PREMIX 200 ML IV SCH (19:48)
[2025-03-27 19:50] LABS: BASOPHILS % 0.2 % (0.0-2.0); EOSINOPHILS % 0.0 % (0.0-5.0); HEMATOCRIT. 36.5 % (42.0-52.0); HEMOGLOBIN. 10.9 g/dL (14.0-18.0); LYMPHOCYTES % 7.1 % (20.0-50.0); MEAN PLATELET VOLUME 8.7 fl (7.4-10.4); MONOCYTES % 8.1 % (2.0-8.0); NEUTROPHILS % 84.6 % (40.0-76.0); PLATELET 160 x1000/uL (130-400); RED BLOOD CELL COUNT 5.24 mill/uL (4.7-6.1); RED CELL DISTRIBUTION WIDTH 21.6 % (11.6-14.6)
[2025-03-27 19:53] LABS: ADD RBC MORPHOLOGY YES
[2025-03-27 20:04] LABS: CLARITY URINE CLEAR (CLEAR); COLOR URINE DARK YELLOW (YELLOW); GLUCOSE URINE NEGATIVE (NEGATIVE); KETONES URINE NEGATIVE (NEGATIVE); LEUKOCYTE ESTERASE URINE NEGATIVE (NEGATIVE); NITRITE URINE NEGATIVE (NEGATIVE); OCCULT BLOOD URINE TRACE (NEGATIVE); PH URINE 5.0 (4.5-8.0); PROTEIN URINE 3+ (NEGATIVE); SPECIFIC GRAVITY URINE 1.029 (1.005-1.030); UROBILINOGEN URINE 1.0 E.U./dL (0.2-1.0)
[2025-03-27 20:05] LABS: CREATININE 1.0 mg/dL (0.6-1.3); UREA NITROGEN BLOOD 14 mg/dL (9-23)
[2025-03-27 20:06] LABS: ASPARTATE AMINOTRANSFERASE 18 IU/L (<34); PROTEIN TOTAL 7.0 g/dL (6.0-8.3)
[2025-03-27 20:07] LABS: BILIRUBIN DIRECT 0.9 mg/dL (<=3.0); BILIRUBIN TOTAL 5.0 mg/dL (0.1-1.0)
[2025-03-27 20:18] LABS: INFLUENZA TYPE A Presumptive Negative (Pres. Neg.)
[2025-03-27 20:18] LABS: TROPONIN I HIGH SENSITIVITY 788 ng/L (3.0-53)
[2025-03-27 20:19] LABS: INFLUENZA TYPE B Presumptive Negative (Pres. Neg.)
[2025-03-27 20:21] LABS: INR 1.4
[2025-03-27 21:48] LABS: BACTERIA URINE NONE SEEN; RBC URINE 0-2 /hpf (0-2); SQUAMOUS EPITHELIAL CELL URINE RARE /lpf (RARE/1+); WBC URINE NONE SEEN /hpf (0-2)
[2025-03-27 22:58] VITALS: BP 126/90; PULSE 116; RESP 22; TEMP 36.6; O2SAT 100
[2025-03-27] MEDS: HYDROCODONE/ACETAMINOPHEN 10/325MG TABLET PO PRN (23:03)
[2025-03-27 23:20] VITALS: PULSE 112; RESP 22; O2SAT 98
[2025-03-27] MEDS: BUDESONIDE 0.5MG/2ML NEB HHN SCH (23:20)
[2025-03-27] MEDS: IPRATROPIUM/ALBUTEROL 0.5-3(2.5)MG/3ML NEB HHN PRN (23:20)
[2025-03-27 23:36] LABS: PLATELET ESTIMATE NORMAL
[2025-03-28] VITALS (8 sets, daily range): BP systolic 100–133; BP diastolic 72–95; PULSE 77–116; RESP 18–24; TEMP 36.5–37; O2SAT 95–98
[2025-03-28] MEDS: AZITHROMYCIN 500MG/250ML 250 ML IV SCH (00:20)
[2025-03-28 06:52] LABS: CREATININE 0.9 mg/dL (0.6-1.3)
[2025-03-28 06:53] LABS: UREA NITROGEN BLOOD 12 mg/dL (9-23)
[2025-03-28 07:40] LABS: HEMATOCRIT. 33.0 % (42.0-52.0); HEMOGLOBIN. 10.1 g/dL (14.0-18.0); MEAN PLATELET VOLUME 9.2 fl (7.4-10.4); PLATELET 173 x1000/uL (130-400); RED BLOOD CELL COUNT 4.78 mill/uL (4.7-6.1); RED CELL DISTRIBUTION WIDTH 21.3 % (11.6-14.6)
[2025-03-28] MEDS: ENOXAPARIN 40MG/0.4ML SYR SUBCUT SCH (09:23)
[2025-03-28] MEDS ORDERED: ACETAMINOPHEN 650MG/20.3ML UDC PO PRN ×2 (09:45→10:00)
[2025-03-28] MEDS ORDERED: ACETAMINOPHEN WITH CODEINE 300/60MG TABLET PO PRN (11:30)
[2025-03-28] MEDS ORDERED: NALOXONE HCL 0.4MG/ML VIAL IV PRN (11:45)
[2025-03-28] MEDS: BENZONATATE 100MG CAPSULE PO SCH (12:14)
[2025-03-28] MEDS: FUROSEMIDE 40MG/4ML VIAL IVP SCH (12:22)
[2025-03-28] MEDS: METHYLPREDNISOLONE SOD SUCC 40MG/ML (ACT-O-VIAL) IV SCH (12:23)
[2025-03-28] MEDS: MAGNESIUM 2 G PREMIX 50 ML IV SCH (12:34)
[2025-03-28 12:48] LABS: LACTATE DEHYDROGENASE 403 IU/L (120-246)
[2025-03-28 14:18] LABS: *AMPHETAMINES SCREEN URINE PRESUMPTIVE POSITIVE (NEGATIVE); *BARBITURATES SCREEN URINE NEGATIVE (NEGATIVE); *BENZODIAZEPINES SCREEN URINE NEGATIVE (NEGATIVE); *COCAINE SCREEN URINE NEGATIVE (NEGATIVE); CANNABINOID URINE SCREEN NEGATIVE (NEGATIVE); ECSTASY MDMA SCREEN URINE NEGATIVE (NEGATIVE); METHADONE URINE SCREEN NEGATIVE (NEGATIVE); OPIATES URINE SCREEN NEGATIVE (NEGATIVE); PHENCYCLIDINE URINE SCREEN NEGATIVE (NEGATIVE)
[2025-03-28] MEDS ORDERED: ONDANSETRON HCL 4MG/2ML INJ IV PRN (14:30)
[2025-03-28] MEDS ORDERED: ACETAMINOPHEN 325MG TABLET PO PRN (14:30)
[2025-03-28] MEDS: TRANEXAMIC ACID 1000MG PREMIX 100 ML IV NR (14:34)
[2025-03-28] MEDS: MAGNESIUM 1 G PREMIX 100 ML IV NR (16:00)
[2025-03-28 18:13] LABS: LYMPHOCYTES % MANUAL 6.0 % (20.0-50.0); MONOCYTES % MANUAL 2.0 % (2.0-8.0); NEUTROPHILS % MANUAL 92.0 % (45.0-75.0); PLATELET ESTIMATE NORMAL
[2025-03-28 19:25] LABS: TROPONIN I HIGH SENSITIVITY 686 ng/L (3.0-53)
[2025-03-28] MEDS: CEFTRIAXONE 1GM/50ML 50 ML IV SCH (22:11)
[2025-03-28] MEDS ORDERED: IOHEXOL-300 50 ML BOTTLE IV ONE (23:13)
[2025-03-29] VITALS (7 sets, daily range): BP systolic 100–118; BP diastolic 62–82; PULSE 101–112; RESP 16–20; TEMP 36.4–37.1; O2SAT 94–100
[2025-03-29 07:17] LABS: CREATININE 1.1 mg/dL (0.6-1.3)
[2025-03-29 07:21] LABS: UREA NITROGEN BLOOD 18 mg/dL (9-23)
[2025-03-29 07:38] LABS: HEMATOCRIT. 35.7 % (42.0-52.0); HEMOGLOBIN. 10.2 g/dL (14.0-18.0); MEAN PLATELET VOLUME 8.6 fl (7.4-10.4); PLATELET 211 x1000/uL (130-400); RED BLOOD CELL COUNT 4.84 mill/uL (4.7-6.1); RED CELL DISTRIBUTION WIDTH 21.6 % (11.6-14.6)
[2025-03-29] MEDS: PANTOPRAZOLE SODIUM 40 MG/VIAL IV SCH (08:44)
[2025-03-29] MEDS ORDERED: NON FORMULARY MED XX SCH (13:15)
[2025-03-29 13:54] LABS: BAND% 3.0 % (1.0-6.0); LYMPHOCYTES % MANUAL 4.0 % (20.0-50.0); MONOCYTES % MANUAL 2.0 % (2.0-8.0); NEUTROPHILS % MANUAL 91.0 % (45.0-75.0)
[2025-03-29 13:55] LABS: PLATELET ESTIMATE NORMAL
[2025-03-29] MEDS: IRON SUCROSE COMPLEX 100 MG/5 ML ML IV SCH (15:23)
[2025-03-29] MEDS: LACTULOSE 20G/30ML UDC PO NR (17:30)
[2025-03-29] MEDS: CLOPIDOGREL 75MG TABLET PO SCH (18:43)
[2025-03-29] MEDS: ASPIRIN 81MG TABLET PO SCH (18:43)
[2025-03-29] MEDS: SENNOSIDES/DOCUSATE SOD 8.6/50MG TABLET PO SCH (21:00)
[2025-03-30] VITALS (7 sets, daily range): BP systolic 105–121; BP diastolic 59–92; PULSE 98–107; RESP 18–20; TEMP 36.1–36.8; O2SAT 92–100
[2025-03-30 08:12] LABS: HEMATOCRIT. 32.9 % (42.0-52.0); HEMOGLOBIN. 10.2 g/dL (14.0-18.0); MEAN PLATELET VOLUME 9.0 fl (7.4-10.4); PLATELET 202 x1000/uL (130-400); RED BLOOD CELL COUNT 4.84 mill/uL (4.7-6.1); RED CELL DISTRIBUTION WIDTH 20.9 % (11.6-14.6)
[2025-03-30 08:31] LABS: CREATININE 0.9 mg/dL (0.6-1.3); FOLIC ACID (FOLATE) SERUM 3.94 ng/mL (>5.38); VITAMIN B12 SERUM 587 pg/mL (211-911)
[2025-03-30 08:32] LABS: PROTEIN TOTAL 6.6 g/dL (6.0-8.3); UREA NITROGEN BLOOD 22 mg/dL (9-23)
[2025-03-30 08:33] LABS: ASPARTATE AMINOTRANSFERASE 18 IU/L (<34)
[2025-03-30 08:34] LABS: BILIRUBIN DIRECT 0.8 mg/dL (<=3.0); BILIRUBIN TOTAL 1.8 mg/dL (0.1-1.0)
[2025-03-30] MEDS ORDERED: CEFEPIME 2GM IN DEXT 5% 100ML IV SCH (11:15)
[2025-03-30] MEDS: CEFEPIME 2GM PREMIX 100ML IV SCH (14:40)
[2025-03-30] MEDS: FOLIC ACID 1MG TABLET PO SCH (17:31)
[2025-03-31] VITALS (7 sets, daily range): BP systolic 106–132; BP diastolic 78–91; PULSE 62–107; RESP 16–20; TEMP 36.4–41.1; O2SAT 92–99
[2025-03-31 08:09] LABS: HEMATOCRIT. 32.1 % (42.0-52.0); HEMOGLOBIN. 9.9 g/dL (14.0-18.0); MEAN PLATELET VOLUME 8.9 fl (7.4-10.4); PLATELET 212 x1000/uL (130-400); RED BLOOD CELL COUNT 4.72 mill/uL (4.7-6.1); RED CELL DISTRIBUTION WIDTH 20.8 % (11.6-14.6)
[2025-03-31 08:23] LABS: CREATININE 0.9 mg/dL (0.6-1.3); UREA NITROGEN BLOOD 21 mg/dL (9-23)
[2025-03-31 15:41] LABS: LYMPHOCYTES % MANUAL 1.0 % (20.0-50.0); MONOCYTES % MANUAL 3.0 % (2.0-8.0); NEUTROPHILS % MANUAL 96.0 % (45.0-75.0); PLATELET ESTIMATE NORMAL
[2025-03-31 16:40] LABS: LYMPHOCYTES % MANUAL 3.0 % (20.0-50.0); MONOCYTES % MANUAL 3.0 % (2.0-8.0); NEUTROPHILS % MANUAL 94.0 % (45.0-75.0); PLATELET ESTIMATE NORMAL
[2025-03-31] MEDS ORDERED: LEVO750T68 MT (17:00)
[2025-04-01] VITALS: BP 107/73; PULSE 99; RESP 17; TEMP 35.9; O2SAT 97
[2025-04-01 04:00] VITALS: BP 121/80; PULSE 106; RESP 18; TEMP 36.4; O2SAT 92
[2025-04-01 08:00] VITALS: BP 128/92; PULSE 107; RESP 18; TEMP 36.5; O2SAT 95
[2025-04-01 08:24] LABS: HEMATOCRIT. 33.5 % (42.0-52.0); HEMOGLOBIN. 10.6 g/dL (14.0-18.0); MEAN PLATELET VOLUME 9.0 fl (7.4-10.4); PLATELET 239 x1000/uL (130-400); RED BLOOD CELL COUNT 4.91 mill/uL (4.7-6.1); RED CELL DISTRIBUTION WIDTH 21.5 % (11.6-14.6)
[2025-04-01 08:53] LABS: CREATININE 0.9 mg/dL (0.6-1.3); UREA NITROGEN BLOOD 17 mg/dL (9-23)
[2025-04-01] MEDS ORDERED: FOLIC ACID 1MG TABLET PO SCH (09:00)
[2025-04-01 12:30] VITALS: BP 133/99; PULSE 102; RESP 18; TEMP 36.6; O2SAT 97
[2025-04-01] MEDS: LORAZEPAM 2MG/ML UD SYRINGE IV SCH (13:11)
[2025-04-01 14:59] LABS: LYMPHOCYTES % MANUAL 2.0 % (20.0-50.0); MONOCYTES % MANUAL 5.0 % (2.0-8.0); NEUTROPHILS % MANUAL 93.0 % (45.0-75.0); PLATELET ESTIMATE NORMAL
[2025-04-01 16:00] VITALS: BP 129/91; PULSE 97; RESP 18; TEMP 36.8; O2SAT 100
== END 2025-04-01 19:40 | disposition home or self-care (01) | DRG 720 ==
LOC: ER 18:00 → EDBEDREQTM 20:31 → EDBEDREQ 20:31 → ENRESERV 22:23 → 8WST 22:34
PROVIDERS: ADMIT Internal Medicine; ATTEND Internal Medicine
DX: A41.9 Sepsis, unspecified organism (principal); I50.23 Acute on chronic systolic (congestive) heart failure; J96.21 Acute and chronic respiratory failure with hypoxia; E87.20 Acidosis, unspecified; E88.09 Other disorders of plasma-protein metabolism, not elsewhere classified; E11.9 Type 2 diabetes mellitus without complications; D50.9 Iron deficiency anemia, unspecified; J18.9 Pneumonia, unspecified organism; J44.0 Chronic obstructive pulmonary disease with (acute) lower respiratory infection; I11.0 Hypertensive heart disease with heart failure; K74.60 Unspecified cirrhosis of liver; F15.10 Other stimulant abuse, uncomplicated; Z20.822 Contact with and (suspected) exposure to COVID-19; I21.A1 Myocardial infarction type 2; K76.0 Fatty (change of) liver, not elsewhere classified; E83.42 Hypomagnesemia; I25.10 Atherosclerotic heart disease of native coronary artery without angina pectoris; I25.2 Old myocardial infarction; Z79.84 Long term (current) use of oral hypoglycemic drugs; Z79.899 Other long term (current) drug therapy; Z86.73 Personal history of transient ischemic attack (TIA), and cerebral infarction without residual deficits; Z87.81 Personal history of (healed) traumatic fracture; Z99.81 Dependence on supplemental oxygen; Z91.148 Patient's other noncompliance with medication regimen for other reason
CPT/HCPCS: 36415; 71045; 71270; 80048; 80076; 80305; 81003; 82248; 82270; 82375; 82378; 82607; 82746; 82803; 83540; 83550; 83605; 83615; 83735; 83880; 84145; 84484; 85025; 85044; 85379; 87070; 87426; 87804; 93005; 93970; 94070; 94640; 94664; 96365; 98960; 99291; 99292; A4606; J0456; J0692; J0696; J1650; J1938; J2060; J2470; J2919; J3373; J3475; J7626; Q9967